=== PATIENT | male | born 1945 | race Caucasian/White ===

== ENCOUNTER 2018-07-03 09:23 | Day surgery (SDC) | payer OTHER ==
[~2018-07-03] VITALS: Ht 185.4 cm; Wt 86.2 kg
[2018-07-03] MEDS ORDERED: METOCLOPRAMIDE HCL 10 MG/2 ML VIAL IVP ONE (12:05)
[2018-07-03] MEDS ORDERED: OXYMETAZOLINE HCL 0.05% NASAL SPRAY NS ONE (12:05)
[2018-07-03] MEDS ORDERED: LIDOCAINE/EPI 1% 1:100000 20 ML VIAL INJ ONE (12:05)
[2018-07-03] MEDS ORDERED: WATER FOR IRRIGATION,STERILE 1,000 ML IRRIG.SOLN IR ONE (12:05)
[2018-07-03] MEDS ORDERED: fentaNYL CITRATE 250 MCG/5 ML AMP IV ONE (12:05)
[2018-07-03] MEDS ORDERED: ROCURONIUM BROMIDE 10 MG/ML (ZEMURON) IV ONE (12:05)
[2018-07-03] MEDS ORDERED: hydrALAZINE HCL 20 MG/ML VIAL IVP ONE (12:05)
[2018-07-03] MEDS ORDERED: SEVOFLURANE 15 MIN GAS INH ONE (12:05)
[2018-07-03] MEDS ORDERED: DEXAMETHASONE SOD PHOSPHATE 4 MG/ML VIAL IVP ONE (12:05)
[2018-07-03] MEDS ORDERED: BACITRACIN ZINC 15 GM TOPICAL OINTMENT TP ONE (12:05)
[2018-07-03] MEDS ORDERED: LR 1,000 ML IV.SOLN IV ONE (12:05)
[2018-07-03] MEDS ORDERED: ONDANSETRON HCL 4 MG/2 ML VIAL IVP ONE (12:05)
[2018-07-03] MEDS ORDERED: LEVOFLOXACIN 500 MG/D5W 100 ML PIGGYBACK IV ONE (12:05)
[2018-07-03] MEDS ORDERED: MIDAZOLAM HCL 5 MG/5 ML VIAL IVP ONE (12:05)
[2018-07-03] MEDS ORDERED: KETOROLAC TROMETHAMINE 30 MG VIAL IVP ONE (12:05)
[2018-07-03] MEDS ORDERED: MUPIROCIN 2% TOPICAL OINTMENT 22 GM TP ONE (12:05)
[2018-07-03] MEDS ORDERED: EPINEPHrine 1 MG/ML AMP INFIL ONE (12:05)
[2018-07-03] MEDS ORDERED: PROPOFOL 200MG/ 20ML VIAL (DIPRIVAN) IV ONE (12:05)
[2018-07-03] MEDS ORDERED: LR 1,000 ML IV SCH (13:23)
[2018-07-03] MEDS ORDERED: HYDROmorphone 2 MG/ML VIAL IVP PRN ×2 (13:30)
[2018-07-03] MEDS ORDERED: MEPERIDINE HCL/PF 25 MG/ML DISP.SYRIN IVP PRN (13:30)
[2018-07-03] MEDS ORDERED: HYDROmorphone 1 MG INJ. 1 MG/ML AMPUL IVP PRN (13:30)
[2018-07-03 15:37] VITALS: BP_SYST 117
== END 2018-07-03 17:30 | disposition home or self-care (01) ==
LOC: SDS 09:23 → SMU 09:28 → SDS 17:30
PROVIDERS: ATTEND Otolaryngology
DX: J34.2 Deviated nasal septum (principal); J32.9 Chronic sinusitis, unspecified; J34.89 Other specified disorders of nose and nasal sinuses; J33.8 Other polyp of sinus; M19.90 Unspecified osteoarthritis, unspecified site
CPT/HCPCS: 30140; 30520; 31255; 31267; 31298; 87070 ×2; 87075; 87101; 88305; 88311; C1726; J0171; J0360; J1100; J1885; J1956; J2250; J2405; J2704; J2765; J3010; J7120; 87186-TC

== ENCOUNTER 2019-10-08 11:03 | Day surgery (SDC) | payer OTHER, SELFPAY ==
[~2019-10-08] VITALS: Ht 185.4 cm; Wt 72.6 kg
[2019-10-08] MEDS ORDERED: SUGAMMADEX SODIUM 200 MG/2 ML VIAL IV ONE (13:03)
[2019-10-08] MEDS ORDERED: PROPOFOL 200MG/ 20ML VIAL (DIPRIVAN) IV ONE (13:03)
[2019-10-08] MEDS ORDERED: LIDOCAINE 2%, 20 ML MDV INJ ONE (13:03)
[2019-10-08] MEDS ORDERED: NS IRRIG SOLN 1000 ML IR ONE (13:03)
[2019-10-08] MEDS ORDERED: MIDAZOLAM HCL 5 MG/5 ML VIAL IVP ONE (13:03)
[2019-10-08] MEDS ORDERED: ONDANSETRON HCL 4 MG/2 ML VIAL IVP ONE (13:03)
[2019-10-08] MEDS ORDERED: ISOFLURANE 15 MIN GAS INH ONE (13:03)
[2019-10-08] MEDS ORDERED: ROCURONIUM BROMIDE 10 MG/ML (ZEMURON) IV ONE (13:03)
[2019-10-08] MEDS ORDERED: fentaNYL CITRATE 250 MCG/5 ML AMP IV ONE (13:03)
[2019-10-08] MEDS ORDERED: LR 1,000 ML IV.SOLN IV ONE (13:03)
[2019-10-08] MEDS ORDERED: DEXAMETHASONE SOD PHOSPHATE 4 MG/ML VIAL IVP ONE (13:03)
[2019-10-08] MEDS ORDERED: ONDANSETRON HCL 4 MG/2 ML VIAL IVP PRN (14:15)
[2019-10-08] MEDS ORDERED: HYDROmorphone 1 MG INJ. 1 MG/ML AMPUL IVP PRN ×2 (14:15)
[2019-10-08] MEDS ORDERED: METOCLOPRAMIDE HCL 10 MG/2 ML VIAL IVP PRN (14:15)
[2019-10-08] MEDS ORDERED: LR 1,000 ML IV SCH (14:15)
[2019-10-08] MEDS ORDERED: MIDAZOLAM HCL 2 MG/2 ML VIAL (VERSED) IVP PRN (14:15)
[2019-10-08] MEDS ORDERED: MEPERIDINE HCL/PF 25 MG/ML DISP.SYRIN IVP PRN (14:15)
[2019-10-08] MEDS ORDERED: hydrALAZINE HCL 20 MG/ML VIAL IVP PRN (14:15)
[2019-10-08] MEDS ORDERED: LABETALOL 100 MG/ 20ML VIAL IVP PRN (14:15)
[2019-10-08] MEDS ORDERED: POLYMYXIN 500,000/BACIT.10,000 UNITS in NS IRR 1 L IR ONE (14:39)
[2019-10-08 16:51] VITALS: BP_SYST 160
== END 2019-10-08 17:00 | disposition home or self-care (01) ==
LOC: SDS 11:03 → SMU 11:04 → SDS 17:00
PROVIDERS: ATTEND Otolaryngology
DX: J32.4 Chronic pansinusitis (principal); R09.81 Nasal congestion; I10 Essential (primary) hypertension; Z90.5 Acquired absence of kidney; Z11.59 Encounter for screening for other viral diseases
CPT/HCPCS: 31256; 31298; 87070; 87075; 87101; 87116; 87186; C1726; C9399; J1100; J2001; J2250; J2405; J2704; J3010; J3465; J7120; U0003